=== PATIENT | male | born 1990 | race Caucasian/White ===

== ENCOUNTER 2019-10-16 23:47 | Emergency (ER) | payer SELFPAY ==
[~2019-10-16] VITALS: Ht 182.9 cm; Wt 90.9 kg
[~2019-10-16 23:47] MED LIST: AUGMENTIN500TAB PO; BACTRIM DS1 TAB OR; BACTRIM DS1 TAB PO; DENIES ANY HOME MEDS; GENTAMICIN SULF5 ML OP; NAPROSYN500 MG OR; NO HOME MEDS; NO MEDS; ULTRAM50 MG OR
[2019-10-17 00:32] LABS: HEMATOCRIT 42.8 % (39.0-50.0); HEMOGLOBIN 14.5 g/dl (14.0-18.0); IMMATURE GRANULOCYTES 0.9 % (0.0-5.0); MEAN CELL VOLUME 94.5 fL CALC (80.0-100.0); MEAN CORPUSCULAR HGB CONC 33.9 g/dL CAL (32.0-36.0); NEUT# 4.78 thou/uL (1.82-7.42); RED BLOOD COUNT 4.53 mill/uL (4.70-6.10); RED CELL DISTRI WIDTH 12.7 % (11.5-15.5)
[2019-10-17 00:41] LABS: ALKALINE PHOSPHATASE 56 u/l (38-126); AMYLASE 37 u/l (30-110); ANION GAP 14 (6-22 (CALC)); BUN 9 mg/dL (9-20); BUN/CREATININE RATIO 8 (12-20 (CALC)); CARBON DIOXIDE 27 mmol/l (22-30); CHLORIDE 101 mmol/l (95-108); CREATININE 1.1 mg/dL (0.7-1.3); GFR > 60 ML/MIN (>=60 (CALC)); GFR FOR AFR.AMER. > 60 ML/MIN (>=60 (CALC)); LIPASE 247 u/l (23-300); SODIUM 138 mmol/l (137-146)
[2019-10-17 00:46] LABS: ALBUMIN 4.6 g/dL (3.2-5.0); BILIRUBIN, TOTAL 0.5 mg/dL (0.0-1.4); SGOT/AST 62 u/l (17-59)
[2019-10-17 00:53] LABS: MYOGLOBIN 31 ng/mL (0 - 121)
[2019-10-17 02:18] VITALS: BP 147/66
== END 2019-10-17 02:33 | disposition home or self-care (01) | DRG 313 ==
LOC: ED 23:47
PROVIDERS: Family Medicine
DX: R07.9 Chest pain, unspecified (principal); M54.12 Radiculopathy, cervical region; F10.129 Alcohol abuse with intoxication, unspecified

== ENCOUNTER 2022-01-06 09:19 | Emergency (ER) | payer SELFPAY ==
[~2022-01-06] VITALS: Ht 182.9 cm; Wt 98.0 kg
[2022-01-06 09:26] VITALS: BP 140/98
[2022-01-06 09:30] VITALS: BP 138/96
[2022-01-06 09:46] VITALS: BP 138/96
== END 2022-01-06 09:55 | disposition home or self-care (01) | DRG 556 ==
LOC: ED 09:19
DX: M25.521 Pain in right elbow (principal); X50.0XXA Overexertion from strenuous movement or load, initial encounter